=== PATIENT | male | born 1970 | race Caucasian/White ===

== ENCOUNTER → 2019-10-17 15:10 | Outpatient (BNVA) | payer OTHER, SELFPAY | PROVIDERS: Visit Provider Internal Medicine Cardiovascular Disease | DX: I25.10 Atherosclerotic heart disease of native coronary artery without angina pectoris (principal); E78.5 Hyperlipidemia, unspecified; I10 Essential (primary) hypertension | CPT/HCPCS: 80053; 80061; 83036; 83721; 84443; 85025 ==

== ENCOUNTER 2020-01-24 05:50 | Day surgery (SDC) | payer OTHER, SELFPAY ==
[2020-01-23 10:02] VITALS: BMI 35.4
[2020-01-24] VITALS (7 sets, daily range): BP systolic 126–172; BP diastolic 82–107; PULSE 69–94; RESP 16–22; TEMP 36.3–37.2; O2SAT 92–97
[2020-01-24] MEDS: sodium chloride 0.9% 1,000 ML 30 ML IV (06:19)
--- NOTE | 2020-01-24 06:58 | W.PM.OPSFHP ---
Same Day Surgery H&P Indication for Procedure/HPI DATE OF PROCEDURE: January 24, 2020 CHIEF COMPLAINT/INDICATIONFOR SURGICAL PROCEDURE: Tear left rotator cuff PREOP DIAGNOSIS: Left rotator cuff tear, impingement, PLANNED PROCEDRUE: Operation Date: 01/24/20 07:25 Proposed Procedures p Shoulder Arthroscopy subacromial decompression and other indicated produres [id number] M75.102(Left) - Chance Colorado MD s Rotator Cuff Repair(Left) - Chance Colorado MD Mr. zheng is a 41-year-old male who injured his left shoulder at work for [employer] in May resulting pain. An MRI revealed rotator cuff tearing and subluxation. The patient had ongoing pain decision was made to proceed with surgery. He had a pre-existing cardiac history and surgery was delayed until cardiac clearance could be obtained Medications/Allergies* Home Medications Medication Instructions Recorded Confirmed Type amlodipine 5 mg PO DAILY 01/23/20 01/23/20 History aspirin 2 tab PO DAILY 01/23/20 01/23/20 History atorvastatin 20 mg PO DAILY 01/23/20 01/23/20 History hydrocodone-acetaminophen 1 tab PO Q6H PRN 01/23/20 01/23/20 History metoprolol succinate [Toprol XL] 50 mg PO DAILY 01/23/20 01/23/20 History Allergies/Adverse Reactions Allergy/AdvReac Type Severity Reaction Status Date / Time No Known Allergies Allergy Verified 01/23/20 09:58 Current Medications: Generic Name Dose Route Start Last Admin Trade Name Freq PRN Reason Stop Dose Admin Sodium Chloride 1,000 mls @ 30 mls/hr 01/24/20 05:45 01/24/20 06:19 Sodium Chloride 0.9% IV 01/25/20 05:44 30 mls/hr .Q24H NELY Administration Pertinent History/Comorbid Conditions* Medical History (Updated 10/18/19 @ 10:46 by Rachel Degroot MD) HTN (hypertension) Hyperlipidemia Tear of left rotator cuff Social History Smoking and tobacco status: current some day smoker Alcohol intake: current Alcohol intake frequency: holidays/special occasions only Pertinent Exam Findings alert, oriented x 3, clear to auscultation bilaterally and regular rate & rhythm The patient's left shoulder can be flexed to 110 degrees and axial rotated 50 degrees. He had pain and weakness abducting his arm away from his body and with external rotator strength testing Pertinent Data PERTINENT DATA: An MRI dated 07/13/2019 revealed partial tearing of supraspinatus and subscapularis with medial subluxation of his biceps. Recommendations Surgery/Procedure today Coding Level of Care Code Acute Center Rep for Whitley Petty
--- NOTE | 2020-01-24 07:19 | ANES.PREANE2 ---
Pre-Anesthetic Assessment Pre-Anesthetic Assessment: Height/Weight: Height 1.78 m Weight 112.037 kg Temp Pulse Resp BP Pulse Ox 98.9 F 80 18 156/104 97 01/24/20 05:59 01/24/20 05:59 01/24/20 05:59 01/24/20 05:59 01/24/20 05:59 Preop Diagnosis: Left rotator cuff tear, impingement, Proposed Procedure: Operation Date: 01/24/20 07:25 Proposed Procedures p Shoulder Arthroscopy subacromial decompression and other indicated produres [id number] M75.102(Left) - Chance Colorado MD s Rotator Cuff Repair(Left) - Chance Colorado MD Was Beta Corwin taken within 24 hours: Yes Last intake: Intake Last Liquid Date 01/23/20 Last Liquid Time 20:00 Last Solid Date 01/23/20 Last Solid Time 20:00 Last Intake: 00:00 Social: Social History: Alcohol (several beers a day) and Tobacco (chews ) Exam: Pre-Anes Outpt Exam: alert, oriented x 3 and clear to auscultation bilaterally Pulmonary: Pulmonary: None reported CV/HEM: CV/HEM: CAD, HTN and TN Comments: stents x1 stress negative 3 weeks ago referred chest pain from shoulder : : None reported Hepatic: Hepatic: None reported GI: GI: GERD (controlled with diet ) Metabolic: Metabolic: None reported Musc/skel: Musc/skel: RA Neuropsych: Neuropsych: None reported Anesthetic Plan: ASA status: 2 Anesthesia: Anesthesia Evaluation and General Meds/Allergies Current Medications: Current Medications Generic Name Dose Route Start Last Admin Trade Name Freq PRN Reason Stop Dose Admin Sodium Chloride 1,000 mls @ 30 ml s/hr 01/24/20 05:45 01/24/20 06:19 Sodium Chloride 0.9% IV 01/25/20 05:44 30 mls/hr .Q24H NELY Administration PFSH Anesthesia PFSH: Medical History (Updated 01/23/20 @ 10:01 by Felicity Coelho) HTN (hypertension) Hyperlipidemia Tear of left rotator cuff Social History Smoking and tobacco status: current some day smoker Alcohol intake: current Alcohol intake frequency: holidays/special occasions only Data Anesthesia Cardiac Studies: No Data to Display
--- NOTE | 2020-01-24 09:33 | PM.OP ---
Operative Report Date of procedure: January 24, 2020 Pre-op Diagnosis: Left supraspinatus and subscapularis tendon tears, impingement, subluxation biceps tendon Post-op Diagnosis: Partial tear left biceps tendon, impingement, subacromial bursitis Post-op Findings: The patient had a 50% tear of his biceps tendon as it entered the bicipital groove, type II acromion Normal rotator cuff Procedure Done: Arthroscopic assisted open left biceps tenodesis Arthroscopic left subacromial decompression and debridement subacromial bursa Implants: [employer]uster [employer]hew Q fix implants x2 Pathology: none sent Surgeon: Chance Colorado Anesthesia: General and Nerve Block (Interscalene block) Estimated blood loss (mL): 50 Complications: None Findings: The patient was found to have a high-grade tear of his biceps tendon is into the bicipital groove involving approximately 50% and degenerative changes of his superior labrum. His rotator cuff was inspected particularly the supraspinatus and infraspinatus and no significant tearing was identified. He had abundant subacromial bursitis and a type II acromion anterior acromion Condition: stable Disposition: PACU Procedure: The patient was taken to the operating room after an interscalene block was provided by anesthesia. He was given a general anesthesia and positioned in the lateral position. He was given 2 g of Ancef. Arm was brought through a range of motion under anesthesia with the patient having no restrictions of motion. His shoulder could be easily flexed to 150 degrees and actually rotate 60 degrees. He was then placed in 15pounds of traction. A timeout was performed. The shoulder was initially entered through a posterior portal suture 2 cm inferior and medial to the posterior corner of the acromion. A scope cannula and trocar were driven into the glenohumeral joint. A spinal needle was used to localize a anterior portal just inferior to the biceps in the rotator interval and a 8 mm working cannula was placed anteriorly. Blood and debris's were removed with incisor shaver. Hemostasis provided with the Schuster [employer] Nephew Werewolf cautery. The biceps tendon was probed revealing tearing and a plan was made to proceed with a biceps tenodesis. Initial inspection of the supraspinatus and what was visible of the subscapularis from articular aspect revealed no tearing. A spinal needle was introduced through the biceps and a Prolene suture shuttled through the biceps. Both ends of that suture retrieved through the anterior portal and secured around the biceps to control the tendon. The Schuster [employer]hew Werewolf probe was introduced to the anterior portal and the biceps released from the superior labrum. With the biceps removed and careful attention was again pain to the leading edge of the subscapularis., Spine was not identified and no subscapularis tearing was noted. Attention was then paid to the biceps tenodesis. 4 cm long incision was made just anterior to the anterior axillary fold with a scalpel dissection was carried down bluntly to the lower border of the pectoralis tendon. By applying traction across the sutures the biceps tendon was easily identified and retracted into the wound. The bicipital groove was debrided and a Q fix anchor placed securing the biceps to this debrided area of bone. A second Q fix anchor was placed approximately a centimeter proximal. The tendon was as is well sutured to the pec major insertion. The proximal 5 cm of tendon were cut with scissors. Attention was then focused back on the shoulder. The shoulder scope was reintroduced the glenohumeral joint and again attention paid to the superior subscapularis. With posterior retraction as well as elevation with a probe no subscap tearing was identified. The scope was then moved to the subacromial space. A lateral working portal was created. Abundant bursal tissue was encountered which was removed with the incisor shaver and Schuster [employer] Nephew Werewolf probe this allowed visualization of the bursal aspect of the rotator cuff which again was free of a tearing. The leading edge of the acromion was outlined a 5.5 mm acromion was introduced and approximately 5 mm of anterior and inferior acromion removed, converting the acromion to type I morphology. The shoulder was irrigated with saline. Portals were closed with 3-0 Prolene. Sterile dressings were applied. The patient was placed in a sling, extubated, and taken to recovery room in stable condition.
--- NOTE | 2020-01-24 09:42 | SUR.PHASEI ---
PT SLEEPS IF NOT DISTURBED , GOOD RESP NOTED ORAL AIRWAY IN PLACE VSS LT SHOULDER WITH SMALL AMT PINK DRAINAGE MARKED AND DR MIX AT BEDSIDE SLING IN PLACE DISTAL FINGERS PINK WARM CAP REFILL LESS THAN 3 SECONDS, PT HAD INTERSCALINE BLOCK PRIOR TO SURGERY.
--- NOTE | 2020-01-24 09:47 | SUR.PHASEI ---
PT AWAKES ON RA ORAL AIRWAY OUT PT COUGHING OCC.
--- NOTE | 2020-01-24 10:22 | SUR.PHASEI ---
[id number] PT AWAKE ALERT TALKATIVE, VSS PT TO OPS HANDOFF AT BEDSIDE
[2020-01-24] MEDS: oxyCODONE 5 mg IR Tab/Cap PO (10:25)
--- NOTE | 2020-01-24 11:49 | ANES.PROC ---
Anesthesia Procedures Procedure/Date: 01/24/20 Nerve Block ^: Nerve Block 1: Time Out Performed: Yes Consent: requested by attending/covering physician Nerve block location: interscalene Anesthesia monitors applied: pulse oximetry, BP cuff and oxygen Nerve block position: supine Anesthetic Used: ropivicaine 0.5% Amount of anesthesia used (mL): 30 Nerve Stimulator Used?: Yes Interscalene/Femoral BLK: 2 stimuplex 22 g needle used for position and inplane approach Injection: neg aspiration of heme Patient Tolerated Procedure: well and no complications Complications: none Additional Comments: Very easy single pass with distinct motor response at 1.2mA involving the left hand, arm and shoulder. Response disappeared at0.38mA. 30 ml of 0.5% Ropiv injected after repeated aspiration. No paresthesia or complication; very well tolerated.
== END 2020-01-24 10:40 | disposition home or self-care (01) ==
PROVIDERS: Visit Provider Orthopaedic Surgery
PROC: (CPT 29805; principal; 2020-01-24 07:25)
PROC: (CPT 23430; 2020-01-24 07:25)
DX: S46.212A Strain of muscle, fascia and tendon of other parts of biceps, left arm, initial encounter (principal); M75.52 Bursitis of left shoulder; I25.10 Atherosclerotic heart disease of native coronary artery without angina pectoris; I25.2 Old myocardial infarction; I10 Essential (primary) hypertension; E78.5 Hyperlipidemia, unspecified; F17.200 Nicotine dependence, unspecified, uncomplicated; Z95.5 Presence of coronary angioplasty implant and graft; Z79.82 Long term (current) use of aspirin; X58.XXXA Exposure to other specified factors, initial encounter
CPT/HCPCS: 24340; 29825; 29826; 12345; 96374; 96375; C1713; J0330; J0690; J1100; J2405; J2704; J2710; J2795; J3010; J3490; J7030